=== PATIENT | female | born 1975 | race Caucasian/White ===

== ENCOUNTER 2021-11-02 13:26 | Emergency (ER) | payer OTHER ==
[~2021-11-02] VITALS: Ht 149.9 cm; Wt 86.6 kg
[2021-11-02 13:36] VITALS: BP_SYST 130
--- NOTE | 2021-11-02 18:00 | NUR ---
ER at bedside examining patient.
--- NOTE | 2021-11-02 18:15 | NUR ---
Pt bib self from home CC headache r/t work related incident. 5-10 pound metal object fell from upper shelf and struck pt on the head. NO LOC. Skin intact no bump to cranium. Intermittent nausea. no episodes of vomiting. Pt is a&ox4.
[2021-11-02 19:19] VITALS: BP_SYST 122
--- NOTE | 2021-11-02 19:19 | NUR ---
Patient given written and verbal discharge instructions and verbalizes understanding. ER MD discussed with patient the results and treatment provided. Patient in stable condition. ID arm band removed. Opportunity for questions provided and answered. Medication side effect fact sheet provided.
== END 2021-11-02 19:19 | disposition home or self-care (01) ==
LOC: SED 13:26
DX: S06.0X0A Concussion without loss of consciousness, initial encounter (principal); Z79.899 Other long term (current) drug therapy; W22.8XXA Striking against or struck by other objects, initial encounter; Y93.89 Activity, other specified; Y92.89 Other specified places as the place of occurrence of the external cause; Y99.8 Other external cause status
CPT/HCPCS: 70450-TC; 76376; 99284